=== PATIENT | male | born 1990 | race African-American/Black ===

== ENCOUNTER 2018-10-24 17:22 | Emergency (ER) | payer SELFPAY ==
[2018-10-24 17:32] VITALS: BP 147/94
[2018-10-24] MEDS ORDERED: AMOXICILLIN TRIHYDRATE 500 MG CAPSULE PO ONE (17:51)
--- NOTE | 2018-10-24 17:57 | ER Document Report ---
ED General - General Chief Complaint: Sore Throat Stated Complaint: SORE THROAT Time Seen by Provider: 10/24/18 17:51 Primary Care Provider: SANDY,NO [Primary Care Provider] - Follow up as needed Mode of Arrival: Ambulatory Information source: Patient TRAVEL OUTSIDE OF THE [place] IN LAST 30 DAYS: No - HPI Patient complains to provider of: Extremely sore throat, stomachache, subjective fever Onset: Other - 2-3 DAYS Onset/Duration: Sudden Severity: Severe Pain Level: 5 Associated symptoms: Chills, Fever, Sore throat Exacerbated by: Denies Relieved by: Denies Similar symptoms previously: No Recently seen / treated by doctor: No Notes: 28-year-old -Serbian male comes in today with 2-3 days of very sore throat, subjective fevers, and stomachache. No vomiting. No headache. No cough or coryza - Related Data Allergies/Adverse Reactions: No Known Allergies Allergy (Verified 03/30/12 20:03) Past Medical History - General Information source: Patient - Social History Smoking Status: Smoker,Current Status Unk Family History: Reviewed & Not Pertinent Review of Systems - Review of Systems Notes: Constitutional: Subjective fevers and chills EENT: No eye redness. No eye pain. No ear pain. Positive for sore throat. Cardiovascular: No chest pain. No palpitations. Respiratory: No cough. No shortness of breath. No respiratory distress. Gastrointestinal: No abdominal pain. No nausea, vomiting, or diarrhea. Genitourinary: Atraumatic. No lesions. No pain. No discharge. Musculoskeletal: Atraumatic. No swelling. No deformities. Skin: No rash or lesions. Lymphatic: No swollen lymph nodes. Neurologic: No headache. No syncope. Psychiatric: No suicidal or homicidal ideation. Physical Exam - Vital signs Vitals: Temp Pulse Resp BP Pulse Ox 97.4 F 85 16 147/94 H 99 10/24/18 17:31 10/24/18 17:31 10/24/18 17:31 10/24/18 17:31 10/24/18 17:31 - Notes Notes: General: Well-developed, well-nourished. In no acute distress. Non-toxic appearing. Cardiac: Well-perfused. Regular rate and rhythm. No murmurs, rubs, or gallops. Pulmonary: No respiratory distress. No cyanosis. Bilateral lung Mcintyre are clear to auscultation. Abdominal: Non-distended. Non-rigid. Bowels sounds are present in all four quadrants. No guarding or rebound. HEENT: Head is atraumatic. Conjunctivae not reddened. No tearing. PERRL. EOMI. Orbits atraumatic. No periorbital swelling or erythema. Oropharynx is erythematous with enlarged swollen tonsils Neck: Supple. No adenopathy. No meningismus. Dermatologic: Warm with good turgor. No rash. Atraumatic. Chest: Atraumatic. No chest wall tenderness to palpation. Musculoskeletal: Moves all extremities well. No range of motion deficits. no muscular or joint tenderness. No paraspinal muscle tenderness. no midline spinal tenderness or step-off. Genitourinary: Examination deferred Neurologic: No gross neurologic deficits. Psychiatric: Normal mood. Course - Vital Signs Vital signs: Temp Pulse Resp BP Pulse Ox 97.4 F 85 16 147/94 H 99 10/24/18 17:31 10/24/18 17:31 10/24/18 17:31 10/24/18 17:31 10/24/18 17:31 Discharge - Discharge Clinical Impression: Pharyngitis Qualifiers: Pharyngitis/tonsillitis etiology: unspecified etiology Qualified Code(s): J02.9 - Acute pharyngitis, unspecified Disposition: HOME, SELF-CARE Instructions: Sore Throat ([facility]) Additional Instructions: Salt water gargles. Chloraseptic spray. Ibuprofen or naproxen which are availa ble [id number] for pain and fever. Take full duration of your antibiotics without skipping any doses. Do not leave any leftovers for later Prescriptions: Amoxicillin 1 tab PO TID #30 tab Referrals: SANDYNO [Primary Care Provider] - Follow up as needed [facility] [Provider Group] - Follow up as needed
== END 2018-10-24 18:07 | disposition home or self-care (01) ==
LOC: ER 17:22
DX: J02.9 Acute pharyngitis, unspecified (principal); R10.9 Unspecified abdominal pain; J35.1 Hypertrophy of tonsils
CPT/HCPCS: 99282

== ENCOUNTER 2019-04-10 17:47 | Emergency (ER) | payer SELFPAY ==
[2019-04-10] MEDS ORDERED: IBUPROFEN 800 MG TABLET PO ONE (19:15)
--- NOTE | 2019-04-10 19:15 | ER Document Report ---
HPI - HPI Time Seen by Provider: 04/10/19 18:22 Pain Level: 5 Context: Patient is a 29-year-old male who presents to the emergency department with the chief complaint of sore throat. Patient states his symptoms initially started with a stuffy nose, sore throat and chills. Patient denies fever. Patient denies nausea, vomiting or diarrhea. Patient states he is also having bilateral ear pain. Patient denies cough. Patient reports he does smoke cigarettes which does seem to irritate his throat. Patient states he has been taking Tylenol with minimal relief. Patient denies headache or neck pain. - CONSTITUTIONAL Constitutional: REPORTS: Chills. DENIES: Fever - EENT EENT: REPORTS: Sore Throat, Ear Pain Past Medical History - General Information source: Patient - Social History Smoking Status: Never Smoker Frequency of alcohol use: None Drug Abuse: None Family History: Reviewed & Not Pertinent Patient has suicidal ideation: No Patient has homicidal ideation: No - Past Medical History Cardiac Medical History: Reports: None Pulmonary Medical History: Reports: None EENT Medical History: Reports: None Neurological Medical History: Reports: None Endocrine Medical History: Reports: None Renal/ Medical History: Reports: None. Denies: Hx Peritoneal Dialysis Malignancy Medical History: Reports None GI Medical History: Reports: None Musculoskeletal Medical History: Reports None Skin Medical History: Reports None Psychiatric Medical History: Reports: None Traumatic Medical History: Reports: None Infectious Medical History: Reports: None Past Surgical History: Reports: Hx Tonsillectomy - and adenoids Vertical Provider Document - CONSTITUTIONAL Agree With Documented VS: Yes Exam Limitations: No Limitations General Appearance: No Apparent Distress - INFECTION CONTROL TRAVEL OUTSIDE OF THE [place] IN LAST 30 DAYS: No - HEENT HEENT: Atraumatic, Normocephalic, PERRLA Notes: Patient's external ear exam was negative bilaterally, there was no tragus tenderness, mastoid tenderness or pinna tenderness. Bilaterally patient had pearly gomez tympanic membranes that were slightly erythematous but was able to visualize all landmarks. Patient's pharynx was slightly erythematous, tonsils slightly erythematous without exudate or edema. - NECK Neck: Normal Inspection - RESPIRATORY Respiratory: Breath Sounds Normal, No Respiratory Distress - CARDIOVASCULAR Cardiovascular: Regular Rate, Regular Rhythm - GI/ABDOMEN Gastrointestinal: Abdomen Soft, Abdomen Non-Tender, Normal Bowel Sounds - NEURO Level of Consciousness: Awake, Alert, Appropriate - DERM Integumentary: Warm, Dry, No Rash Course - Re-evaluation Re-evalutation: 04/10/19 19:15 Patient strep test was negative. I did inform him that a strep culture has been sent off. He will be notified if he needs to be placed on antibiotics. I did inform the patient to use Tylenol and ibuprofen as needed. Stop smoking as this can irritate the throat and make his symptoms worse. At this time I do believe his symptoms are viral. Patient did have swollen turbinates bilaterally without rhinorrhea. I did inform him to use an [id number] Flonase. Patient reports his sinus congestion has actually improved but continues to have the sore throat. - Vital Signs Vital signs: Temp Pulse Resp BP Pulse Ox 98.6 F 78 18 149/86 H 99 04/10/19 17:54 04/10/19 17:54 04/10/19 17:54 04/10/19 17:54 04/10/19 17:54 - Laboratory Laboratory results interpreted by me: 04/10/19 19:18 Laboratory 04/10/19 18:25 Group A Strep Rapid NEGATIVE Discharge - Discharge Clinical Impression: Sore throat (viral) Ear pain Qualifiers: Laterality: bilateral Qualified Code(s): H92.03 - Otalgia, bilateral Condition: Stable Disposition: HOME, SELF-CARE Additional Instructions: Today you were seen in the emergency department for a sore throat. Your strep test was negative. A culture has been sent to the lab and you will be notified if this is positive and you need to be placed on oral antibiotics. Please return to the emergency department if you develop a high fever despite taking Tylenol and ibuprofen, have difficulty swallowing or difficulty breathing, have a productive cough, or any other concerning signs or symptoms. Please avoid smoking as this can be an irritation to her throat and make her symptoms worse. Sore Throat Sore throats may be caused by viruses, bacteria, or fungi. Most are due to a virus, and must get better on their own. Bacterial sore throats, particularly those due to "strep," need treatment with antibiotics. If an antibiotic is prescribed, be sure to take the medication for a full 10 days. Failure to take the antibiotic can result in complications such as rheumatic fever. Sometimes, an injection of antibiotics is given instead of pills or liquid. This single "shot" is equal in effectiveness to the oral medication. To relieve symptoms, take acetaminophen for pain. Sip clear liquids frequently, or eat popsicles or ice chips. Anesthetic sprays or lozenges may help. Make sure the air in the room is not too dry. Avoid using decongestants or antihistamines. Call the doctor if there is no improvement in two days, or if you have difficulty breathing, increasing throat pain, high fever, rash, or frequent vomiting. Forms: Smoking Cessation Education
[2019-04-10 19:25] VITALS: BP 135/83
== END 2019-04-10 19:31 | disposition home or self-care (01) ==
LOC: ER 17:47
DX: J02.9 Acute pharyngitis, unspecified (principal); H92.03 Otalgia, bilateral; F17.210 Nicotine dependence, cigarettes, uncomplicated
CPT/HCPCS: 87070; 87880; 99283

== ENCOUNTER 2019-04-25 00:28 | Emergency (ER) | payer SELFPAY ==
[2019-04-25 00:52] VITALS: BP 143/74
--- NOTE | 2019-04-25 01:36 | RADIOLOGY REPORT (SQ) ---
CLINICAL HISTORY: bone tenderness COMPARISON: None. TECHNIQUE: XR FOOT 3 OR MORE VIEWS 04/25/2019 12:00 AM CDT FINDINGS: There is no fracture. Joint spaces are preserved. Soft tissues are unremarkable. IMPRESSION: No acute osseous findings.
[2019-04-25] MEDS ORDERED: KETOROLAC TROMETHAMINE 60 MG/2 ML SDV IM ONE (01:47)
== END 2019-04-25 02:21 | disposition home or self-care (01) ==
LOC: ER 00:28
DX: Z53.21 Procedure and treatment not carried out due to patient leaving prior to being seen by health care provider (principal); S99.929A Unspecified injury of unspecified foot, initial encounter; X58.XXXA Exposure to other specified factors, initial encounter
CPT/HCPCS: 99283; 96372; 73630; J1885